=== PATIENT | female | born 1975 | race Caucasian/White ===

== ENCOUNTER → 2016-11-17 | Outpatient (CLI) | payer OTHER ==
[2014-02-25 05:06] VITALS: BP 159/96
--- NOTE | 2016-11-17 16:47 | RAD ---
Pelvic ultrasound to include transabdominal and transvaginal imaging 11/17/2016 Clinical history: Menorrhagia with fibroid seen on outside CT scan. Technique: Using the distended urinary bladder as a sonographic window, a real-time ultrasound examination of the pelvis was performed. Additionally in attempt to better evaluate the uterus and adnexa, a transvaginal pelvic ultrasound was performed. Multiple images were obtained. Findings: No previous imaging studies are available for comparison. The uterus is mildly enlarged. It measures 12.8 x 7.6 x 4.8 cm in longitudinal, transverse, and AP dimensions. The endometrial echo complex measures 1.5 cm in thickness which is within normal limits. A hypoechoic mass is seen within the anterior aspect of the lower uterine body. It measures 5.8 cm in size. A smaller hypoechoic mass is seen within the anterior aspect of the superior body/fundus of the uterus. It measures 3.3 cm in size. These are consistent with uterine fibroids. No additional abnormality of the uterus is seen. Small nabothian cysts are seen within the cervix. Both ovaries are within normal limits in size and echogenicity. The right ovary measures 3.2 x 2.2 x 1.7 cm in size. The left ovary measures 3.6 x 3.1 x 2.9 cm in size. No adnexal mass is seen. No free fluid is noted. Impression: Mildly enlarged fibroid uterus.
== END | disposition home or self-care (01) ==
LOC: US 11:55
PROVIDERS: ATTEND Obstetrics & Gynecology
DX: N92.0 Excessive and frequent menstruation with regular cycle (principal); N92.1 Excessive and frequent menstruation with irregular cycle; D25.9 Leiomyoma of uterus, unspecified
CPT/HCPCS: 76830; 76856